=== PATIENT | male | born 1995 | race Caucasian/White ===

== ENCOUNTER → 2019-01-10 | Outpatient (CLI) | payer OTHER ==
[2019-01-10 11:18] LABS: Alanine Aminotransfer (ALT/SGP 35 U/L (12-78); Albumin, Blood 3.3 g/dL (3.4-5.0); Albumin/Globulin Ratio 0.8 (0.8-1.8); Alk Phos 64 U/L (40-126); Anion Gap 12 mmol/L (6-16); Aspartate Aminotrans (AST/SGOT 15 U/L (12-37); Bilirubin, Total 0.5 mg/dL (0.1-1.0); Blood Urea Nitrogen 16 mg/dL (8-24); Bun/Creatinine Ratio 24.6 (12.0-20.0); CO2, Blood 25 mmol/L (21-32); Chloride, Blood 103 mmol/L (98-108); Creatinine, Blood 0.65 mg/dL (0.60-1.20); Globulin, Blood 4.4 g/dL (2.2-4.0); Glomerular Filtration Rate >60 (60-); Glucose, Blood 302 mg/dL (70-99); Sodium, Blood 140 mmol/L (136-145); Total Protein, Blood 7.7 g/dL (6.4-8.2)
== END | disposition home or self-care (01) ==
LOC: LAB EV 10:47 → LAB SHORT 10:47
PROVIDERS: Physician Assistant
DX: L03.119 Cellulitis of unspecified part of limb (principal); L02.419 Cutaneous abscess of limb, unspecified; R53.83 Other fatigue
CPT/HCPCS: 80053; 83036; 84443; 87070; 87075; 87077; 87147; 87185; 87186; 87205

== ENCOUNTER 2020-08-25 22:32 | Inpatient (IN) | payer OTHER ==
[~2020-08-25] VITALS: Ht 170.2 cm; Wt 157.3 kg
[2020-08-25 23:38] LABS: BASOPHILS ABSOLUTE AUTO 0.02 K/mm3 (0.00-0.23); BASOPHILS PERCENT AUTO 0 % (0-2); EOSINOPHILS ABSOLUTE AUTO 0.01 K/mm3 (0.00-0.68); EOSINOPHILS PERCENT AUTO 0 % (0-6); Hematocrit 52.6 % (37.0-53.0); Hemoglobin 17.8 g/dL (13.5-17.5); IMMATURE GRAN ABSOLUTE AUTO 0.05 K/mm3 (0.00-0.10); IMMATURE GRAN PERCENT AUTO 0 % (0-1); LYMPHOCYTES ABSOLUTE AUTO 1.37 K/mm3 (0.84-5.20); LYMPHOCYTES PERCENT AUTO 12 % (21-46); MONOCYTES ABSOLUTE AUTO 0.78 K/mm3 (0.16-1.47); MONOCYTES PERCENT AUTO 7 % (4-13); Mean Corpuscular HGB 27.8 pg (26.0-34.0); Mean Corpuscular HGB Conc 33.8 g/dL (31.5-36.5); Mean Corpuscular Volume 82 fL (80-100); Mean Platelet Volume 12.1 fL (9.1-12.4); NEUTROPHILS ABSOLUTE AUTO 9.14 K/mm3 (1.96-9.15); NEUTROPHILS PERCENT AUTO 80 % (41-73); Platelet Count 258 K/mm3 (150-400); RDW Coefficient Variation 12.8 % (11.7-14.2); RDW Standard Deviation 38.3 fL (35.1-46.3); Red Blood Cell Count 6.41 M/mm3 (4.30-5.90); White Blood Cell Count 11.37 K/mm3 (4.00-11.30)
[2020-08-26 01:19] LABS: Alanine Aminotransfer (ALT/SGP 30 U/L (12-78); Albumin, Blood 2.9 g/dL (3.4-5.0); Albumin/Globulin Ratio 0.6 (0.8-1.8); Alk Phos 60 U/L (50-136); Anion Gap 8 mmol/L (6-16); Aspartate Aminotrans (AST/SGOT 14 U/L (12-37); Bilirubin, Total 0.5 mg/dL (0.1-1.0); Blood Urea Nitrogen 14 mg/dL (8-24); Bun/Creatinine Ratio 20.5 (12.0-20.0); CO2, Blood 28 mmol/L (21-32); Calcium, Blood 8.9 mg/dL (8.5-10.1); Chloride, Blood 100 mmol/L (98-108); Creatinine, Blood 0.68 mg/dL (0.60-1.20); Glomerular Filtration Rate >60 (60-); Glucose, Blood 377 mg/dL (70-99); Sodium, Blood 136 mmol/L (136-145); Total Protein, Blood 7.9 g/dL (6.4-8.2); Troponin I <0.015 ng/mL (0.000-0.040)
--- NOTE | 2020-08-26 03:55 | NUR ---
UPDATE DR WONG NOTIFIED OF THE LACTIC OF 2.9, NO ORDERS RECEIVED. DR OH ALSO NOTIFIED THAT PATIENT'S BLOOD SUGAR WAS 377 IN ER AND THERE ARE NO ORDRES FOR CBG'S OR COVERAGE. ORDERS RECEIVED WITH AN ORDER TO COVER NOW. DR WONG AWARE THAT PATIENT'S BLOOD SUGAR WAS GREATER THAN 350.
--- NOTE | 2020-08-26 03:57 | NUR ---
ADMIT NOTE PATIENT ADMITTED FROM THE ER AND WAS ABLE TO TRANSFER SELF FROM THE RNEY TO THE BED INDEPENDENTLY. PATIENT ON 6L ON ADMIT. PATIENT'S RESPIRATIONS APPEAR TO BE EVEN AND UNLABORED. PATIENT DOES NOT APPEAR TO BE IN ANY DISTRESS UPON ADMIT. PATIENT SETTLED IN AND ORIENTED TO THE ROOM, UNIT, AND CALL LIGHT. PATIENT CURRENTLY RESTING IN BED ATTEMPTING TO SLEEP. CALL LIGHT IN REACH.
[2020-08-26 04:33] LABS: BASOPHILS ABSOLUTE AUTO 0.03 K/mm3 (0.00-0.23); BASOPHILS PERCENT AUTO 0 % (0-2); EOSINOPHILS PERCENT AUTO 0 % (0-6); Hematocrit 49.7 % (37.0-53.0); Hemoglobin 16.7 g/dL (13.5-17.5); IMMATURE GRAN ABSOLUTE AUTO 0.07 K/mm3 (0.00-0.10); IMMATURE GRAN PERCENT AUTO 1 % (0-1); LYMPHOCYTES ABSOLUTE AUTO 0.67 K/mm3 (0.84-5.20); LYMPHOCYTES PERCENT AUTO 5 % (21-46); MONOCYTES ABSOLUTE AUTO 0.76 K/mm3 (0.16-1.47); MONOCYTES PERCENT AUTO 6 % (4-13); Mean Corpuscular HGB 27.5 pg (26.0-34.0); Mean Corpuscular HGB Conc 33.6 g/dL (31.5-36.5); Mean Corpuscular Volume 82 fL (80-100); Mean Platelet Volume 11.6 fL (9.1-12.4); NEUTROPHILS ABSOLUTE AUTO 11.22 K/mm3 (1.96-9.15); NEUTROPHILS PERCENT AUTO 88 % (41-73); Platelet Count 236 K/mm3 (150-400); RDW Coefficient Variation 12.7 % (11.7-14.2); RDW Standard Deviation 37.7 fL (35.1-46.3); Red Blood Cell Count 6.07 M/mm3 (4.30-5.90); White Blood Cell Count 12.75 K/mm3 (4.00-11.30)
[2020-08-26 04:58] LABS: Alanine Aminotransfer (ALT/SGP 29 U/L (12-78); Albumin, Blood 2.6 g/dL (3.4-5.0); Albumin/Globulin Ratio 0.6 (0.8-1.8); Alk Phos 54 U/L (50-136); Anion Gap 8 mmol/L (6-16); Aspartate Aminotrans (AST/SGOT 14 U/L (12-37); Bilirubin, Total 0.4 mg/dL (0.1-1.0); Blood Urea Nitrogen 16 mg/dL (8-24); Bun/Creatinine Ratio 30.8 (12.0-20.0); CO2, Blood 27 mmol/L (21-32); Calcium, Blood 8.3 mg/dL (8.5-10.1); Chloride, Blood 102 mmol/L (98-108); Creatinine, Blood 0.52 mg/dL (0.60-1.20); Globulin, Blood 4.6 g/dL (2.2-4.0); Glomerular Filtration Rate >60 (60-); Glucose, Blood 359 mg/dL (70-99); Sodium, Blood 137 mmol/L (136-145); Total Protein, Blood 7.2 g/dL (6.4-8.2)
--- NOTE | 2020-08-26 08:24 | NUR ---
SHIFT SUMMARY PATIENT PLEASENT AND COOPERATIVE THROUGHOUT THE REST OF THE NIGHT. PATIENT APPEARED TO NAP ON AND OFF THROUGHOUT THE NIGHT AFTER ADMIT. PATIENT REMAINED ON 6L VIA HIGH FLOW NASAL CANNULA. NO COMPLAINTS OF PAIN NOTED. REPORT GIVEN TO ONCOMING RN.
--- NOTE | 2020-08-26 17:01 | NUR ---
SHIFT SUMMARY: PT CONTINUES A&OX4, RESP EVEN AND UNLABORED, CONTINUES ON HUMIDIFIED HIFLO AT 6 L/MIN AND SATS MAINTAINED >90%, SINUS RHYTHM/TACH ON MONITOR. PT INDEPENDENT IN ROOM, AMBULATORY TO AND FROM RESTROOM W/OUT INCIDENT. PT PROVIDED WITH INFORMATION PACKET RE: DIABETES, INFORMED OF PLAN FOR FRUIT LOADER TO CALL HIS ROOM TOMORROW TO PROVIDE EDUCATION/SUPPORT. PT V/U AND RECEPTIVE TO EDUCATION. PT'S POSITIVE COVID RESULTS OBTAINED FROM [facility] AND GIVEN TO CHARGE NURSE. PT CLEARED FOR MEDICAL DEPT. REPORT HAS BEEN GIVEN TO MARISOL WADE.
--- NOTE | 2020-08-26 19:30 | NUR ---
TRANSFER NOTE/ SHIFT SUMMARY- PT ARRIVED JUST PRIOR TO SHIFT CHANGE, ON 6L VIA HIGH FLOW NC. PT WAS TRANSFERED TO MEDICAL FLOOR, MAINTENANCE COORDINATOR JUAN HELPED TO GET THE PT SETTLED. PASSED ON TELEPHONE REPORT RECIEVED FROM COPING MACHINE OPERATOR TO NIGHT MARISOL BRIGGS. PT ALERT, ORIENTED AND INDEPENDENT IN THE ROOM.
[2020-08-27 05:38] LABS: BASOPHILS ABSOLUTE AUTO 0.01 K/mm3 (0.00-0.23); BASOPHILS PERCENT AUTO 0 % (0-2); EOSINOPHILS ABSOLUTE AUTO 0.01 K/mm3 (0.00-0.68); EOSINOPHILS PERCENT AUTO 0 % (0-6); Hemoglobin 16.4 g/dL (13.5-17.5); IMMATURE GRAN ABSOLUTE AUTO 0.04 K/mm3 (0.00-0.10); IMMATURE GRAN PERCENT AUTO 0 % (0-1); LYMPHOCYTES ABSOLUTE AUTO 1.29 K/mm3 (0.84-5.20); LYMPHOCYTES PERCENT AUTO 12 % (21-46); MONOCYTES ABSOLUTE AUTO 0.78 K/mm3 (0.16-1.47); MONOCYTES PERCENT AUTO 7 % (4-13); Mean Corpuscular HGB 27.6 pg (26.0-34.0); Mean Corpuscular HGB Conc 33.5 g/dL (31.5-36.5); Mean Corpuscular Volume 83 fL (80-100); Mean Platelet Volume 12.1 fL (9.1-12.4); NEUTROPHILS ABSOLUTE AUTO 9.12 K/mm3 (1.96-9.15); NEUTROPHILS PERCENT AUTO 81 % (41-73); Platelet Count 229 K/mm3 (150-400); RDW Coefficient Variation 12.6 % (11.7-14.2); RDW Standard Deviation 38.3 fL (35.1-46.3); Red Blood Cell Count 5.94 M/mm3 (4.30-5.90); White Blood Cell Count 11.25 K/mm3 (4.00-11.30)
[2020-08-27 06:11] LABS: Anion Gap 7 mmol/L (6-16); Blood Urea Nitrogen 18 mg/dL (8-24); Bun/Creatinine Ratio 41.6 (12.0-20.0); CO2, Blood 26 mmol/L (21-32); Calcium, Blood 8.7 mg/dL (8.5-10.1); Chloride, Blood 104 mmol/L (98-108); Creatinine, Blood 0.43 mg/dL (0.60-1.20); Glomerular Filtration Rate >60 (60-); Glucose, Blood 276 mg/dL (70-99); Potassium, Blood 4.4 mmol/L (3.5-5.5); Sodium, Blood 137 mmol/L (136-145)
--- NOTE | 2020-08-27 06:16 | NUR ---
TRUSS DRIVER HELPER SUMMMARY NO ACUTE CHANGES. PT AAOX4 AND INDEPENDENT IN ROOM. REMAINS ON 6L O2 VIA HIGH FLOW NC. STARTED ON 2ND DOSE OF REMDESIVIR TONIGHT, 3 DOSES REMAINING. PT REPORTS IMPROVEMENT IN RESPIRATORY STATUS SINCE ADMIT. VSS, WILL CONTINUE TO MONITOR.
--- NOTE | 2020-08-27 17:53 | NUR ---
SHIFT SUMMARY PATIENT ALERT AND ORIENTED, INDEPENDENT IN THE ROOM THIS SHIFT. PATIENT O2 SATS DOWN IN THE MID 80S LATE THIS MORNING ON 6L O2. PATIENT INCREASED TO 8L O2. SATS INCREASED INTO THE 90S, TRENDING UP TO MID 90S BY LATE AFTERNOON. O2 TITRATED TO 7L, PATIENT MAINTAINING O2 SATS ABOVE 90 AT 7L CURRENTLY. PATIENT UP TO SHOWER INDEPENDENTLY THIS SHIFT. PATIENT DENIES DIFFICULTY BREATHING. PATIENT CURRENTLY SITTING ON BEDSIDE EATING DINNER.
--- NOTE | 2020-08-28 04:18 | NUR ---
SHIFT SUMMARY PT'S O2 INCREASED FROM 7 L AT START OF SHIFT TO 9 L VIA HIGH FLOW NASAL CANNULA TO KEEP O2 SATS GREATER THAN 90%. PT DENIES SOB. REPORTED THAT HE HAD SOME SHORTNESS OF BREATH WHILE SHOWERING IN THE DAY BUT DENIED OTHERWISE. LUNG SOUNDS DIM THROUGHOUT. TELEMETRY READING SR 93. NO COMPLAINTS OF PAIN. PT SLEPT OFF AND ON THROUGHOUT THE NIGHT. WHEN NOT SLEEPING PT MOSTLY JUST RESTING IN BED PLAYING WITH PHONE. NO RESPIRATORY DISTRESS NOTED. VITAL SIGNS STABLE. WILL CONTINUE TO MONITOR AND REPORT TO DAY RN.
--- NOTE | 2020-08-28 05:18 | NUR ---
WHILE THIS RN WAS ON BREAK, COVERING RN REPORTED THAT PT HAD A BLOODY NOSE. NOSE PACKED, NEW NASAL CANNULA BROUGHT IN BY RT, NASAL CANNULA PLACED IN PT'S MOUTH. O2 SATS REMAIN IN THE LOW 90'S. PT SITTING AT SIDE OF BED. DENIES FURTHER NEEDS AT THIS TIME.
--- NOTE | 2020-08-28 17:15 | NUR ---
SHIFT SUMMARY PATIENT ALERT, ORIENTED, INDEPENDENT IN THE ROOM. PATIENT REMAINS ON HIGH FLOW O2. PATIENT ON 9L NC OR 12L VENTURI MASK. PATIENT O2 SATS REMIANING > 90 AT REST. SATS IN THE MID 80S WITH AMBULATION TO THE BATHROOM, QUICKLY RETURNING ONCE AT REST. PATIENT IS COOPERATIVE WITH CARE. PATIENT ALTERNATES LAYING IN BED AND SITTING UP AT THE BEDSIDE. PATIENT DENIES NEEDS THROUGHOUT THIS SHIFT.
--- NOTE | 2020-08-29 04:42 | NUR ---
SHIFT SUMMARY PT REMAINED ON VENTI MASK WITH 40% FI02. O2 SATS IN THE LOW 90'S. PT DESATS WHEN LAYING FLAT ON HIS BACK BUT DOES WELL WHEN LAYING ON HIS SIDE. PT WEARS 8 L VIA NC WHEN GETTING UP TO THE RESTROOM. PT'S LUNGS DIM THROUGHOUT. PT DENIES ANY SOB. REMAINED AWAKE UNTIL LATE IN THE SHIFT BUT APPEARED TO SLEEP WELL ONCE SLEEPING. NO COMPLAINTS OF PAIN. PT EAGER TO RETURN HOME. VITAL SIGNS STABLE. NO ACUTE CHANGES THIS SHIFT. WILL CONTINUE TO MONITOR.
[2020-08-29 05:36] LABS: Anion Gap 5 mmol/L (6-16); Blood Urea Nitrogen 16 mg/dL (8-24); Bun/Creatinine Ratio 30.1 (12.0-20.0); CO2, Blood 29 mmol/L (21-32); Calcium, Blood 8.5 mg/dL (8.5-10.1); Chloride, Blood 103 mmol/L (98-108); Creatinine, Blood 0.53 mg/dL (0.60-1.20); Glomerular Filtration Rate >60 (60-); Glucose, Blood 254 mg/dL (70-99); Potassium, Blood 4.1 mmol/L (3.5-5.5); Sodium, Blood 137 mmol/L (136-145)
--- NOTE | 2020-08-29 17:54 | NUR ---
SHIFT SUMMARY PATIENT ALERT/ORIENTED/INDEPENDENT IN THE ROOM. PATIENT REMAINS ON VENTURI MASK AT 40% FIO2. PATIENT SATS REMAIN > 90 WHEN PATIENT UPRIGHT, PATIENT SATS 88-LOW 90S WITH PATIENT LAYING ON SIDE, WITH SATS DROPPING TO MID 80S WITH PATIENT LAYING ON HIS BACK. PATIENT EDUCATED ON CONTINUED NEED FOR HOSPITALIZATION AND IMPORTANCE OF DIABETES MAINTANENCE AFTER DISCHARGE. PATIENT RESPONSIVE TO EDUCATION. PATIENT SITTING UP AT BEDSIDE FOR MUCH OF THIS SHIFT. PATIENT CURRENTLY SITTING UP EATING DINNER.
--- NOTE | 2020-08-30 04:20 | NUR ---
SHIFT SUMMARY ADMITTED FOR PNEUMONIA/COVID. FULL CODE. DROPLET/CONTACT: COVID. ON A VENTURI MASK @ 13 LPM HIGH FLOW O2. HE DESATURATES WHEN HE LAYS WRONG IN BED OR WHEN HE REMOVES THE MASK TO DRINK WATER. HE DOES DESATURATED TWICE DUE THOSE EVENTS TO 82-86%. TELEMETRY: NSR @ 69 BPM
[2020-08-30 08:33] LABS: Anion Gap 7 mmol/L (6-16); Blood Urea Nitrogen 17 mg/dL (8-24); Bun/Creatinine Ratio 34.6 (12.0-20.0); CO2, Blood 28 mmol/L (21-32); Calcium, Blood 8.6 mg/dL (8.5-10.1); Chloride, Blood 104 mmol/L (98-108); Creatinine, Blood 0.49 mg/dL (0.60-1.20); Glomerular Filtration Rate >60 (60-); Glucose, Blood 260 mg/dL (70-99); Potassium, Blood 3.6 mmol/L (3.5-5.5); Sodium, Blood 139 mmol/L (136-145)
--- NOTE | 2020-08-30 18:00 | NUR ---
PT WITH CBG 390 THIS EVENING. GAVE 5 UNITS LISPRO PER SS. CALLED DR. CASEY TO REPORT, RECEIVED TELEPHONE ORDER TO CHANGE PT'S SLIDING SCALE FROM LOW TO HIGH AND GIVE ADDITONAL DOSE BASED ON THE NEW SLIDING SCALE.
--- NOTE | 2020-08-30 18:43 | NUR ---
SHIFT SUMMARY: OXYGEN TITRATED DOWN TO 6 L/MIN HIGH FLOW, O2 SAT 92-94%. DENIES DIFFICULTY BREATHING, SOB AT REST, CHEST DISCOMFORT, WILL DESAT TO 84-86% WHEN AMBULATING TO BR. DENIED PAIN, N/V. GOOD PO INTAKE. TELEMETRY DISCONTINUED, WAS SR-ST 74-113. INDEPENDENT IN ROOM.
[2020-08-31 05:04] LABS: Anion Gap 6 mmol/L (6-16); Blood Urea Nitrogen 18 mg/dL (8-24); Bun/Creatinine Ratio 25.7 (12.0-20.0); CO2, Blood 29 mmol/L (21-32); Calcium, Blood 8.6 mg/dL (8.5-10.1); Chloride, Blood 101 mmol/L (98-108); Glomerular Filtration Rate >60 (60-); Glucose, Blood 262 mg/dL (70-99); Potassium, Blood 4.1 mmol/L (3.5-5.5); Sodium, Blood 136 mmol/L (136-145)
--- NOTE | 2020-08-31 05:38 | NUR ---
PT IS A/O, IND TO BATHROOM, ON 5L O2 VIA N/C, CBG AC/HS.
--- NOTE | 2020-08-31 15:13 | NUR ---
DIABETES EDUCATION: GAVE PATIENT HAND OUTS ON: HGB A1C, SICK DAY MANAGEMENT, DIABETES BASICS, DM AND HEART DISEASE, DM AND FOOT CARE, AND CARBOHYDRATE COUNTING FOR ADULTS. EDUCATED HIM TO CHECK WITH HIS PCP ABOUT EXERCISE PROGRAM APPROPRIATE FOR HIM. WILL GIVE ADDITIONAL EDUCATION ABOUT INSULIN AT DISCHARGE (HAS BEEN ON ORAL HYPOGLYCEMICS IN THE PAST).
--- NOTE | 2020-08-31 18:16 | NUR ---
SHIFT SUMMARY: NO ACUTE EVENTS. PT IS BORED, WANTS TO GO HOME. O2 @ 5 L/MIN NC, BREATH SOUNDS DIM THROUGHOUT. CBG < 300 TODAY, DEXAMETHASONE NOT GIVEN PER DR. CASEY. GAVE PRINTED EDUCATION ABOUT DM, WHICH HE IS READING. INDEPENDENT IN ROOM.
--- NOTE | 2020-09-01 05:46 | NUR ---
PT IS A/O UP IND IN ROOM, 02 TITRATED TO 4L 92%. CBG AC/HS, PT IS EAGER TO GO HOME, PLEASANT.
--- NOTE | 2020-09-01 12:58 | NUR ---
AM ASSESSMENT. PT IS A/O X4, PLEASANT AFFECT. UP INDEPENDANT IN ROOM. HE STATE NO S/B @ REST, STATE CONTINUING NONPROD, DRY COUGH. O2 @ 5L, BIOX 87-93% CONTINUOUS BIOX IN PLACE. DR CASEY IN TO SEE HIM, ADJUST INSULIN ORDERS, STATE NOT YET READY FOR D/C HOME. RT IN TO SEE HIM LATE AFTERNOON, ENCOURAGE INCENTIVE SPIROMETER & UP IN RECLINER. PT IS COOPERATIVE. VSS.
--- NOTE | 2020-09-01 18:33 | NUR ---
PT CONTINUES ON 5L O2, BIOX 90-93%, HAVE NOT ATTEMPTED TO TITRATE DOWN TODAY. HE HAS BEEN UP IN CHAIR T/O DAY. HAS BEEN USING INCENTIVE SPIROMETER FREQUENTLY INSTRUCTED. VSS. STATE NO DISCOMFORT TODAY.
[2020-09-02 05:39] LABS: Anion Gap 9 mmol/L (6-16); Blood Urea Nitrogen 8 mg/dL (8-24); Bun/Creatinine Ratio 14.5 (12.0-20.0); CO2, Blood 27 mmol/L (21-32); Calcium, Blood 8.8 mg/dL (8.5-10.1); Chloride, Blood 98 mmol/L (98-108); Creatinine, Blood 0.55 mg/dL (0.60-1.20); Glomerular Filtration Rate >60 (60-); Glucose, Blood 241 mg/dL (70-99); Potassium, Blood 3.4 mmol/L (3.5-5.5); Sodium, Blood 134 mmol/L (136-145)
--- NOTE | 2020-09-02 06:17 | NUR ---
PT IS A/O IND IN ROOM, ANXIOUS TO GO HOME. ON 5L O2 VIA N/C. CBG AC/HS, PT GIVEN INSTRUCTION WITH RN REGARDING INSULIN PEN USE AND DEMONSTRATED BACK TO RN PROPER USE THIS SHIFT.
--- NOTE | 2020-09-03 05:22 | NUR ---
SUMMARY NO NEW ISSUES NOTED. PT DENIES SOB. PT EAGER TO GO HOME. PT SLEPT SOME DURING SHIFT. PT CURRENTLY SLEEPING IN NO DISTRESS. CALL LIGHT IN REACH.
[2020-09-03 05:49] LABS: Anion Gap 7 mmol/L (6-16); Blood Urea Nitrogen 12 mg/dL (8-24); Bun/Creatinine Ratio 24.7 (12.0-20.0); CO2, Blood 27 mmol/L (21-32); Calcium, Blood 8.7 mg/dL (8.5-10.1); Chloride, Blood 100 mmol/L (98-108); Creatinine, Blood 0.49 mg/dL (0.60-1.20); Glomerular Filtration Rate >60 (60-); Glucose, Blood 382 mg/dL (70-99); Sodium, Blood 134 mmol/L (136-145)
--- NOTE | 2020-09-03 17:37 | NUR ---
PT AOX4 AND COOPERATIVE OF CARE. PT INDEPENDENT IN ROOM AND HAS TOLERATED 3L TODAY MAINTAINING 91-93%. PT HAD HIS CBG PRIOR TO LUNCH SPIKE TO 446. DR CASEY WAS NOTFIED AND PT TREATED PER EMAR. PT STATED HE HAD ATE AN EXTRA HALF OF A BAGEL WITH BREAKFAST, BUT HAD NOT EATEN ANYTHING ELSE. NO DISTRESS NOTED AT THIS TIME WILL CONTINUE TO MONITOR.
--- NOTE | 2020-09-04 05:44 | NUR ---
SUMMARY NO NEW ISSUES NOTED. PT HAS SLEPT WELL W/ OUT COMPLAINT. PT CURRENTLY SLEEPING IN NO DISTRESS. CALL LIGHT IN REACH.
--- NOTE | 2020-09-04 17:10 | NUR ---
PT AOX4 NO ACUTE CHANGES TODAY. PT DOING WELL AND INDEPENDENT IN ROOM. PT WAS HOPING TO DISCHARGE, BUT NEEDS 6L O2 WHEN AMBULATING VERY FAR IN ROOM PER RT EVALUATION. DR CASEY IS HAVING PT TILL HE DOES NOT NEED MUCH O2 TO AMBULATE. PT TOOK NEWS WELL. PT CALLS APPROPRIATELY. NO DISTRESS NOTED AT THIS TIME WILL CONTINUE TO MONITOR.
--- NOTE | 2020-09-04 22:38 | NUR ---
2129 DR SHIN CALLED AND INFORMED OF PT CBG >400. DR SHIN ORDERED 6 UNITS OF HUMALOG AND TO GIVE NIGHT DOSE OF SEMGLEE.
[2020-09-05 05:32] LABS: Anion Gap 6 mmol/L (6-16); Blood Urea Nitrogen 14 mg/dL (8-24); Bun/Creatinine Ratio 29.2 (12.0-20.0); CO2, Blood 30 mmol/L (21-32); Calcium, Blood 8.9 mg/dL (8.5-10.1); Chloride, Blood 101 mmol/L (98-108); Creatinine, Blood 0.48 mg/dL (0.60-1.20); Glomerular Filtration Rate >60 (60-); Glucose, Blood 276 mg/dL (70-99); Potassium, Blood 3.5 mmol/L (3.5-5.5); Sodium, Blood 137 mmol/L (136-145)
--- NOTE | 2020-09-05 05:59 | NUR ---
SUMMARY PT HAD CBG OF >[address] SHIN CALLED AND ORDERED 6 UNITS OF HUMALOG IN ADDITION TO PT'S LONG LASTING INSULIN. PT DENIES SOB OR SOB. PT HAS BEEN SLEEPING WELL T/O SHIFT. CALL LIGHT IN REACH.
--- NOTE | 2020-09-05 16:39 | NUR ---
SHIFT SUMMARY PT TOLERATING 2L O2 AT REST AND SATING ABOVE 92%. PT DESATS ON RA AND WITH EXERTION. PT DESATED TO THE MID 80S WHEN GETTING UP TO THE SIDE OF BED ON 2L, BUT QUICKLY RECOVERED AFTER RESTING. BLOOD SUGARS REMAIN ELEVATED. TREATED PER EMAR. PT EDICATED ON A DIABETIC DIET AND THE AFFECTS OF STEROIDS ON BLOOD SUGAR. PT SEEMS TO UNDERSTAND AND EXHIBIT SOME KNOWLEDGE ON THIS. PT CONTINUES TO BE EAGER TO GO HOME AND IS HOPEFUL TO LEAVE TOMORROW. NO OTHER ACUTE CHANGES IN ASSESSMENT AT THIS TIME. VS REVIEWED. PT DANGLING ON SIDE OF BED, WATCHING TV ON HIS LAPTOP. CALL LIGHT IN REACH.
--- NOTE | 2020-09-06 05:02 | NUR ---
SHIFT SUMMARY- PT. A&O, PLEASANT AND COOPERATIVE WITH CARE. PT. HAS BEEN AWAKE MOST OF THE NIGHT SITTING UP IN BED USING TABLET OR PHONE. LATER IN THE NIGHT PT. WAS LAYING QUIETLY IN BED WHEN SATS DROPPED TO THE LOW 80'S. PT. C/O HAVING A STUFFY NOSE AND NOT BEING ABLE TO BREATH WELL. ALSO STATED HAD SLIGHT PAINC ATTACK WHILE RESTING IN BED WHICH HE ATTRIBUTED TO ANOTHER REASON WHY HE WAS NOT ABLE TO BREATH WELL. INCREASED O2 TO 3L FROM 2L VIA NC. MEDICATED PT. WITH NASAL SPRAY PER EMAR WITH MINIMAL EFFECT. PT. REPORTED FEELING BETTER, SATS BACK TO BASELINE AT 92-93% ON 2L NC, TOLERATING WELL. DENIED ANY OTHER COMPLAINTS T/O THE SHIFT. CALL LIGHT WITHIN REACH AND SIDE RAILS UPX2. WILL CONT TO MONITOR.
--- NOTE | 2020-09-06 18:11 | NUR ---
DISCHARGE PT DISCHARGED. HOME O2 EVAL COMPLETED THIS SHIFT BY RT. PT REQUIRING 4L AT REST & WITH EXERTION. PORTABLE DROPPED OFF BY NISHI & PT EDUCATED ON HOW TO USE IT. PT SENT HOME WITH A HARD SCRIPT FOR GLUCOMETER SUPPLIES AND GIVEN A GLUCOMETER FROM [facility]. PT EDUCATED ON NEW MEDS, INCLUDING INCULINS AND SLIDING SCALES. PT VERBALIZES UNDERSTANDING OF THE SERIOUSNESS OF THESE MEDS AND THEIR POTENTIAL SIDE EFFECTS. PT HAD BEEN PRACTICING INSULIN INJECTION THE LAST TWO DAYS WHILE HOSPITALIZED & DEMONSTRATED GOOD UNDERSTANDING. INSTURCTION ON NEW GLUCOMETER GONE OVER WITH PT. PT INSTRUCTED TO FILL OUT THE NEW PATIENT PACKET FOR [facility] AND TO FOLLOW UP IN THEIR URGENT CARE UNTIL ESTABLISHED WITH A PCP. PT ENCOURAGED TO KEEP A LOG OF HIS BLOOD SUGARS TO SHOW HIS DR WHEN HE HAS AN APPOINTMENT. PT STATES HE UNDERSTANDS TO RETURN TO THER ER IF SYMPTOMS RETURN. DR. HICKMAN NOTIFIED OF THE PTS CONSISTENTLY ELEVATED BLOOD SUGARS. DR. HICKMAN STATED THAT THE PT WILL NOT BE DISCHARGED WITH STERIODS AND THIS SHOULD HELP WITH THE SUGAR LEVEL. PT STATES HE UNDERSTANDS EDUCATE PRIOR TO DC. WRITTEN INSTRUCTIONS SENT WITH PT TO HELP WITH FURTHER UNDERSTANDING AT HOME. PT WHEELED OUT BY THIS RN AND PICKED UP BY HIS SISTER.
== END 2020-09-06 17:59 | disposition home or self-care (01) | DRG 871 ==
LOC: ER 22:32 → MEDS 23:23 → ER 23:23 → PCU 23:23 → ER 08-26 01:50 → PCU 08-26 01:50 → MEDS 08-26 18:12 → PCU 08-26 18:12 → MEDS 08-26 18:12
PROVIDERS: Emergency Medicine; Internal Medicine; Physician Assistant; ADMIT Internal Medicine
PROC: XW033E5 Introduction of Remdesivir Anti-infective into Peripheral Vein, Percutaneous Approach, New Technology Group 5 (ICD-10-PCS; principal; 2020-08-26)
PROC: 3E0333Z Introduction of Anti-inflammatory into Peripheral Vein, Percutaneous Approach (ICD-10-PCS; 2020-08-26)
PROC: 8E0ZXY6 Isolation (ICD-10-PCS; 2020-08-26)
PROC: 3E02340 Introduction of Influenza Vaccine into Muscle, Percutaneous Approach (ICD-10-PCS; 2020-08-26)
DX: A41.89 Other specified sepsis (principal); U07.1 COVID-19; J12.82 Pneumonia due to coronavirus disease 2019; J96.01 Acute respiratory failure with hypoxia; R65.20 Severe sepsis without septic shock; R04.0 Epistaxis; E11.65 Type 2 diabetes mellitus with hyperglycemia; E66.01 Morbid (severe) obesity due to excess calories; Z23 Encounter for immunization; Z68.39 Body mass index [BMI] 39.0-39.9, adult
CPT/HCPCS: 36415; 71045; 80048; 80053; 82947; 83036; 83605; 83880; 84484; 85025; 85379; 93005; 93010; 94640; 94760; 94761; 94762; 99285-25; A9270; J1100; J1650; J1940

== ENCOUNTER 2020-09-15 09:17 | Inpatient (IN) | payer OTHER ==
[~2020-09-15] VITALS: Ht 175.3 cm; Wt 147.0 kg
[2020-09-15 10:55] LABS: PCO2 Arterial 37.8 mmHg (35-45); pH Blood Arterial 7.47 (7.35-7.45)
[2020-09-15 11:01] LABS: BASOPHILS ABSOLUTE AUTO 0.04 K/mm3 (0.00-0.23); BASOPHILS PERCENT AUTO 0 % (0-2); EOSINOPHILS ABSOLUTE AUTO 0.22 K/mm3 (0.00-0.68); EOSINOPHILS PERCENT AUTO 2 % (0-6); Hematocrit 50.8 % (37.0-53.0); Hemoglobin 16.9 g/dL (13.5-17.5); IMMATURE GRAN ABSOLUTE AUTO 0.06 K/mm3 (0.00-0.10); IMMATURE GRAN PERCENT AUTO 1 % (0-1); LYMPHOCYTES ABSOLUTE AUTO 2.62 K/mm3 (0.84-5.20); LYMPHOCYTES PERCENT AUTO 22 % (21-46); MONOCYTES ABSOLUTE AUTO 1.18 K/mm3 (0.16-1.47); MONOCYTES PERCENT AUTO 10 % (4-13); Mean Corpuscular HGB 27.6 pg (26.0-34.0); Mean Corpuscular HGB Conc 33.3 g/dL (31.5-36.5); Mean Corpuscular Volume 83 fL (80-100); NEUTROPHILS ABSOLUTE AUTO 7.57 K/mm3 (1.96-9.15); NEUTROPHILS PERCENT AUTO 65 % (41-73); Platelet Count 251 K/mm3 (150-400); RDW Coefficient Variation 13.8 % (11.7-14.2); RDW Standard Deviation 40.6 fL (35.1-46.3); Red Blood Cell Count 6.13 M/mm3 (4.30-5.90); White Blood Cell Count 11.69 K/mm3 (4.00-11.30)
[2020-09-15 11:22] LABS: Alanine Aminotransfer (ALT/SGP 73 U/L (12-78); Albumin, Blood 3.3 g/dL (3.4-5.0); Albumin/Globulin Ratio 0.8 (0.8-1.8); Alk Phos 53 U/L (50-136); Anion Gap 7 mmol/L (6-16); Aspartate Aminotrans (AST/SGOT 14 U/L (12-37); Bilirubin, Total 0.5 mg/dL (0.1-1.0); Blood Urea Nitrogen 15 mg/dL (8-24); Bun/Creatinine Ratio 30.2 (12.0-20.0); CO2, Blood 28 mmol/L (21-32); Calcium, Blood 9.2 mg/dL (8.5-10.1); Chloride, Blood 103 mmol/L (98-108); Globulin, Blood 4.1 g/dL (2.2-4.0); Glomerular Filtration Rate >60 (60-); Glucose, Blood 207 mg/dL (70-99); Potassium, Blood 3.7 mmol/L (3.5-5.5); Sodium, Blood 138 mmol/L (136-145); Total Protein, Blood 7.4 g/dL (6.4-8.2)
[2020-09-15] MEDS ORDERED: LANTUS SOL100 UNIT/1 SC (12:45)
[2020-09-15] MEDS ORDERED: ALBU90OI INH (12:46)
[2020-09-15] MEDS ORDERED: METF500 PO (12:47)
[2020-09-15] MEDS ORDERED: HUMALOG KW100 UNIT/1 SC (12:47)
[2020-09-15] MEDS ORDERED: Prinivil10 MG PO (12:47)
--- NOTE | 2020-09-15 15:50 | NUR ---
PT ARRIVED TO PCU 12 VIA GURNEY FROM ED. ABLE TO STAND AND TRANSFER HIMSELF TO BED, HE STATES HE PREFERS TO SIT UP, GOT HIM INTO A RECLINER, A/OX3, PLEASANT AND COOPERATIVE WITH CARE, FOLLOWS COMMANDS WELL, DENIES ANY PAIN, STATES HE ACTUALLY FEELS FINE, JUST CAN'T KEEP HIS O2 LEVELS UP, RT IN ROOM, HE IS ON 8 LITERS VIA HIGH FLOW CANNULA AT THIS TIME, DENIES COUGH, WAS ON 4 LITERS 02 AT HOME, LUNG SOUNDS ARE DIM T/O, RESP EVEN AND UNLABORED, NO COUGH NOTED, HRR, TELE IN PLACE RUNNING SR PER MONITOR, SEE STRIP, NO EDEMA NOTED, PPP+2, CAP REFILL <3SEC, VS HTN, BTX4, ABD LARGE SOFT NONTENDER, VOIDS WITHOUT DIFF, SKIN C/W/D, MAEW, PAWAN, CALL LIGHT IN REACH.
--- NOTE | 2020-09-15 17:39 | NUR ---
Dr. De La Torre was consulted, and saw pt, new orders recieved. bipap will be set up, no further changes, call light in reach.
[2020-09-16 04:03] LABS: BASOPHILS ABSOLUTE AUTO 0.02 K/mm3 (0.00-0.23); BASOPHILS PERCENT AUTO 0 % (0-2); EOSINOPHILS PERCENT AUTO 0 % (0-6); Hematocrit 49.4 % (37.0-53.0); Hemoglobin 16.4 g/dL (13.5-17.5); IMMATURE GRAN ABSOLUTE AUTO 0.05 K/mm3 (0.00-0.10); IMMATURE GRAN PERCENT AUTO 1 % (0-1); LYMPHOCYTES PERCENT AUTO 9 % (21-46); MONOCYTES ABSOLUTE AUTO 0.58 K/mm3 (0.16-1.47); MONOCYTES PERCENT AUTO 5 % (4-13); Mean Corpuscular HGB 27.2 pg (26.0-34.0); Mean Corpuscular HGB Conc 33.2 g/dL (31.5-36.5); Mean Corpuscular Volume 82 fL (80-100); NEUTROPHILS ABSOLUTE AUTO 9.18 K/mm3 (1.96-9.15); NEUTROPHILS PERCENT AUTO 85 % (41-73); Platelet Count 258 K/mm3 (150-400); RDW Coefficient Variation 13.6 % (11.7-14.2); RDW Standard Deviation 39.4 fL (35.1-46.3); Red Blood Cell Count 6.02 M/mm3 (4.30-5.90); White Blood Cell Count 10.83 K/mm3 (4.00-11.30)
[2020-09-16 04:30] LABS: Alanine Aminotransfer (ALT/SGP 67 U/L (12-78); Albumin, Blood 3.1 g/dL (3.4-5.0); Albumin/Globulin Ratio 0.8 (0.8-1.8); Alk Phos 48 U/L (50-136); Anion Gap 6 mmol/L (6-16); Aspartate Aminotrans (AST/SGOT 8 U/L (12-37); Bilirubin, Total 0.5 mg/dL (0.1-1.0); Blood Urea Nitrogen 15 mg/dL (8-24); Bun/Creatinine Ratio 27.1 (12.0-20.0); CO2, Blood 29 mmol/L (21-32); Calcium, Blood 9.3 mg/dL (8.5-10.1); Chloride, Blood 104 mmol/L (98-108); Creatinine, Blood 0.55 mg/dL (0.60-1.20); Globulin, Blood 4.1 g/dL (2.2-4.0); Glomerular Filtration Rate >60 (60-); Glucose, Blood 293 mg/dL (70-99); Potassium, Blood 4.4 mmol/L (3.5-5.5); Sodium, Blood 139 mmol/L (136-145); Total Protein, Blood 7.2 g/dL (6.4-8.2)
--- NOTE | 2020-09-16 05:19 | NUR ---
SHIFT SUMMARY PT RESTED WELL THORUGH NIGHT. ALERT AND ORIENTED - ABLE TO MAKE NEEDS KNOWN. TELE NSR/SINUS TACH. SATS >90% ON 8LNC/CPAP AT NIGHT. AMBULATORY INDEPENDENTLY. VOIDING. NO BM. NO C/O PAIN. VSS - HYPERTENSIVE WITH NO PRN ORDERED - CALLED MD AND GOT PRN HYDRALAZINE. SEE EMAR. OTHER VSS. CALL LIGHT WITHIN REACH, BED IN LOWEST POSITION. WILL CONTINUE TO MONITOR.
--- NOTE | 2020-09-16 08:00 | NUR ---
pt sitting up in the chair with bipap in place, placed him on high flow nasal canula at 8 liters, states he is breathing easier with the bipap and wore it mosst of the night, he reports he didn't get a lot of sleep. lungs are clear, dim t/o, resp even and unlabored at rest, no cough noted at this time, hrr, tele in place running sr to st per monitor, see strip, trace edema to b/l le, more on left, could be body habitus, ppp+2, cap refill <3sec, vs stable, afebrile, iv site is clear and patent, btx4, abd flat soft nontender, voids without diff, skin c/w/d, maew, genesis, call light in reach.
--- NOTE | 2020-09-16 12:20 | NUR ---
ADMIT: 09/15/20 DISCHARGE: DX: Covid Pneumonia CC:[email or web address] LORI CALL: RESIDENCE: home CAREGIVER: duran DAVIS (PARENT) DX: COVID-19, DM-type 2, HTN, Severly obese DME: none CCM: none HOME HEALTH: none SUMMARY: Admit: 09/15/20 09/16/20- per chart review with Dr. Siddiqi, pt will be staying through the weekend and no plan for d/c at this time. -fidelina
--- NOTE | 2020-09-16 18:34 | NUR ---
pt sitting up in the chair, denies any complaints, or needs, states he feels ok, v.s. stable, continues on , no acute changes call light in reach.
[2020-09-17 04:00] LABS: BASOPHILS ABSOLUTE AUTO 0.03 K/mm3 (0.00-0.23); BASOPHILS PERCENT AUTO 0 % (0-2); EOSINOPHILS ABSOLUTE AUTO 0.12 K/mm3 (0.00-0.68); EOSINOPHILS PERCENT AUTO 1 % (0-6); Hematocrit 48.4 % (37.0-53.0); IMMATURE GRAN ABSOLUTE AUTO 0.07 K/mm3 (0.00-0.10); IMMATURE GRAN PERCENT AUTO 1 % (0-1); LYMPHOCYTES ABSOLUTE AUTO 2.03 K/mm3 (0.84-5.20); LYMPHOCYTES PERCENT AUTO 17 % (21-46); MONOCYTES ABSOLUTE AUTO 1.34 K/mm3 (0.16-1.47); MONOCYTES PERCENT AUTO 11 % (4-13); Mean Corpuscular HGB 27.4 pg (26.0-34.0); Mean Corpuscular HGB Conc 33.1 g/dL (31.5-36.5); Mean Corpuscular Volume 83 fL (80-100); Mean Platelet Volume 11.6 fL (9.1-12.4); NEUTROPHILS ABSOLUTE AUTO 8.54 K/mm3 (1.96-9.15); NEUTROPHILS PERCENT AUTO 71 % (41-73); Platelet Count 239 K/mm3 (150-400); RDW Coefficient Variation 14.1 % (11.7-14.2); RDW Standard Deviation 41.9 fL (35.1-46.3); Red Blood Cell Count 5.83 M/mm3 (4.30-5.90); White Blood Cell Count 12.13 K/mm3 (4.00-11.30)
[2020-09-17 04:20] LABS: Alanine Aminotransfer (ALT/SGP 59 U/L (12-78); Albumin, Blood 2.9 g/dL (3.4-5.0); Albumin/Globulin Ratio 0.8 (0.8-1.8); Alk Phos 49 U/L (50-136); Anion Gap 7 mmol/L (6-16); Aspartate Aminotrans (AST/SGOT 12 U/L (12-37); Bilirubin, Total 0.5 mg/dL (0.1-1.0); Blood Urea Nitrogen 21 mg/dL (8-24); Bun/Creatinine Ratio 31.8 (12.0-20.0); CO2, Blood 29 mmol/L (21-32); Calcium, Blood 8.9 mg/dL (8.5-10.1); Chloride, Blood 103 mmol/L (98-108); Creatinine, Blood 0.66 mg/dL (0.60-1.20); Globulin, Blood 3.8 g/dL (2.2-4.0); Glomerular Filtration Rate >60 (60-); Glucose, Blood 254 mg/dL (70-99); Potassium, Blood 4.1 mmol/L (3.5-5.5); Sodium, Blood 139 mmol/L (136-145); Total Protein, Blood 6.7 g/dL (6.4-8.2)
--- NOTE | 2020-09-17 04:59 | NUR ---
SHIFT SUMMARY PT A&O X 4; DENIES CHEST PAIN; VSS; NSR NOTED ON TELE; O2 SATS >93 ON 8L HIGH FLOW; BIPAP ON CPAP SETTINGS FOR BED; SAT IN RECLINER FIRST FEW HOURS OF SHIFT; INDEPENDENT IN ROOM; NO ACUTE CHANGES; CURRENTLY RESTING IN BED; CALL LIGHT IN REACH; BED IN LOWEST POSITION; WILL CONTINUE TO MONITOR CLOSELY UNTIL HAND OFF TO DAY SHIFT RN.
--- NOTE | 2020-09-17 18:53 | NUR ---
HOSPITALIST NOTIFIED GLUCOSE OF 417, 15 UNITS OG HUMALOG GIVEN PER HIGH SLIDING SCALE. SEMGLEE 40 UNITS HS DOSE ORDERED TO BE GIVEN NOW. NO CHANGE IN PT CONDITION NOTED AT THIS TIME.
--- NOTE | 2020-09-17 19:25 | NUR ---
SUMMARY PT IS A&O 4, UP IN BEDSIDE CHAIR THROUGH THE DAY, VSS, O2 VIA NC @ 6 L, SPO2 >92%. TOLERATING PO INTAKE, VOIDING WNL, WAS ABLE TO SHOWER THIS EVENING. NO OTHER CHANGES NOTED. REPORT GIVEN TO DOMINIK DAMON. CALL LIGHT IN REACH
[2020-09-18] MEDS ORDERED: FAMO20 PO (12:32)
[2020-09-18] MEDS ORDERED: AMLO5 PO (12:32)
[2020-09-18] MEDS ORDERED: ACET325 PO (12:32)
[2020-09-18] MEDS ORDERED: THERA-D2000 UNIT PO (12:33)
[2020-09-18] MEDS ORDERED: GALZIN50 MG PO (12:33)
[2020-09-18] MEDS ORDERED: Prednisone10 MG PO (12:35)
[2020-09-18] MEDS ORDERED: INSULANPEN SC (12:35)
--- NOTE | 2020-09-18 14:21 | NUR ---
DISCHARGE TEACHING COMPLETED AT THIS TIME. PT VERBALIZES UNDERSTANDING, ASKING APPROPRIATE QUESTIONS, D/C RX CALLED INTO [facility] BY POULTRY GRADER PER PT'S CHOICE. IV D/C'D WNL, SPO2 REMAINS >93% ON 4L VIA NC, VSS, TOLERATING PO INTAKE, INDEPENDENT IN ROOM. WCTM UNTIL HIS RIDE ARRIVES.
--- NOTE | 2020-09-18 15:40 | NUR ---
DISCHARGED TO HOME WITH FAMILY. PT ESCORTED TO PRIVATE VEHICLE VIA WC. RESP UNLABORED
== END 2020-09-18 15:30 | disposition home or self-care (01) | DRG 177 ==
LOC: ER 09:17 → PCU 12:38
PROVIDERS: Family Medicine; Physician Assistant; ADMIT Internal Medicine
PROC: 8E0ZXY6 Isolation (ICD-10-PCS; principal; 2020-09-15)
PROC: 5A09357 Assistance with Respiratory Ventilation, Less than 24 Consecutive Hours, Continuous Positive Airway Pressure (ICD-10-PCS; 2020-09-15)
DX: U07.1 COVID-19 (principal); J96.01 Acute respiratory failure with hypoxia; J12.82 Pneumonia due to coronavirus disease 2019; Z68.42 Body mass index [BMI] 45.0-49.9, adult; I42.8 Other cardiomyopathies; I10 Essential (primary) hypertension; G47.33 Obstructive sleep apnea (adult) (pediatric); E11.9 Type 2 diabetes mellitus without complications; E66.01 Morbid (severe) obesity due to excess calories; Z79.4 Long term (current) use of insulin
CPT/HCPCS: 36415; 36600; 71045; 71260; 80053; 82803; 82947; 83605; 83880; 84145; 85025; 85379; 86141; 87040; 93005; 93010; 93306; 94660; 94762; 96374-59; 96375-59; 99285-25; A9270; J0360; J1100; J1650; J1956; J3370; J7050; Q9967

== ENCOUNTER 2024-01-28 06:34 | Emergency (ER) | payer BC, OTHER ==
[~2024-01-28] VITALS: Ht 175.3 cm; Wt 172.4 kg
[~2024-01-28 06:34] MED LIST: ACET325 PO; ALBU90OI INH; AMLO5 PO; FAMO20 PO; GALZIN50 MG PO; HUMALOG KW100 UNIT/1 SC; INSULANPEN SC; LANTUS SOL100 UNIT/1 SC; METF500 PO; Prednisone10 MG PO; Prinivil10 MG PO; THERA-D2000 UNIT PO
[2024-01-28] MEDS ORDERED: DEPO-TESTO200 MG/18 IM (06:56)
[2024-01-28] MEDS ORDERED: TRULICITY3 MG/0.5 M SQ (06:56)
[2024-01-28] MEDS ORDERED: Oxymetazoline 0.05% Nasal Relief Spray 15mL BTL ONE (07:40)
[2024-01-28] MEDS ORDERED: ALBU90OI INH (09:01)
[2024-01-28 09:03] VITALS: BP 110/81
== END 2024-01-28 09:02 | disposition home or self-care (01) ==
LOC: ER 06:34
DX: J06.9 Acute upper respiratory infection, unspecified (principal); E11.9 Type 2 diabetes mellitus without complications; Z79.899 Other long term (current) drug therapy; Z79.84 Long term (current) use of oral hypoglycemic drugs
CPT/HCPCS: 71045; A9270